=== PATIENT | male | born 1980 | race Caucasian/White ===

== ENCOUNTER 2018-07-14 06:04 | Emergency (ER) | payer BC ==
[2018-07-14 06:18] VITALS: BP 124/82; PULSE 80; TEMP 97.8; BMI 26.6
--- NOTE | 2018-07-14 06:20 | PDOC ---
History of Present Illness - General Chief Complaint: Pain Stated Complaint: PAIN Time Seen by Provider: 07/14/18 06:14 History Source: Patient Exam Limitations: No Limitations - History of Present Illness Initial Comments: 07/14/18 06:18 This is a 38-year-old male who comes in complaining of left arm pain. Patient has had the pain progressive times several months. Patient also is complaining of initially neck pain. Patient said the pain radiates down his arm. Patient saw his primary care doctor and was referred to a urologist but can't the appointment August 03 comes in because he said he is Sleep because of the pain. In addition to the pain since there is numbness of his hand and fingers. However patient said over the last day or so he has had is also become progressively more swollen. Patient takes gabapentin for the pain but otherwise says he is healthy. PAST MEDICAL HISTORY: no significant history PAST SURGICAL HISTORY: no significant history FAMILY HISTORY: no pertinant history SOCIAL HISTORY: Pt lives with family and is employed. MEDICATIONS: reviewed ALLERGIES: As per nursing notes ROS General: No fevers or chills, no weakness, no weight loss HEENT: No change in vision. No sore throat,. No ear pain CardioVascular: No chest pain or shortness of breath Respiratory:No cough, or wheezing. Gastrointestinal: no nausea, vomiting, diarrhea or constipation, No rectal bleeding Genitourinary: No dysuria, hematuria, or frequency Musculoskeletal: . No joint pain or swelling Neurologic: No headache, vertigo, dizziness or loss of consciousness Psychiatric: nor depression Skin: No rashes or easy bruising Endocrine: no increased thirst or abnormal weight change Allergic: no skin or latex allergy All other systems reviewed and normal GENERAL: The patient is awake, alert, and fully oriented, in no acute distress. HEAD: Normal with no signs of trauma. EARS: Bilateral ears are normal with normal external canal. and tympanic membranes. EYES: Pupils equal, round and reactive to light, extraocular movements intact, sclera anicteric, conjunctiva clear. EXTREMITIES: Left upper extremity: There is swelling of the arm and hand. Hand is moderately swollen. There is decreased range of motion of the fingers secondary to swelling. There is also pain on palpation of the upper arm medially. FOR NEUROLOGICAL: Normal speech, normal gait. grossly intact PSYCH: Normal mood, normal affect. SKIN: Warm, Dry, normal turgor, no rashes or lesions noted. Care of this patient was transferred to Dr. Del Angel at 7 AM. Case discussed in detail with oncoming Emergency Physician including history, physical exam and ancillary studies. Oncoming Emergency Physician has assumed care for the patient and will complete the evaluation and treatment. Patient is aware of the plan. Pt is clinically unchanged and stable. Past History - Past Medical History Allergies/Adverse Reactions: Allergies Allergy/AdvReac Type Severity Reaction Status Date / Time No Known Allergies Allergy Verified 10/04/14 12:47 Home Medications: Ambulatory Orders Naproxen [EC-Naprosyn 375 MG] 375 mg PO BID PRN #14 tablet.ec 10/04/14 Gabapentin 300 mg PO DAILY 07/14/18 Naproxen 500 mg PO BID #14 tablet 07/14/18 Diabetes: No - Suicide/Smoking/Psychosocial Hx Smoking Status: Yes Smoking History: Never smoked Number of Cigarettes Smoked Daily: 5 Hx Alcohol Use: No Substance Use Type: Alcohol *DC/Admit/Observation/Transfer Diagnosis at time of Disposition: Pain and swelling of left upper extremity - Discharge Dispostion Disposition: HOME Condition at time of disposition: Stable - Prescriptions Prescriptions: Naproxen 500 mg PO BID #14 tablet - Referrals Referrals: Enrique Barboza MD [Primary Care Provider] - Jh Portillo MD [Staff Physician] - - Patient Instructions Printed Discharge Instructions: DI for Cervical Radiculopathy Additional Instructions: Call the number provided to make an appointment with orthopedics within 48 hours. You will need a MRI of your neck. Take one naproxen twice a day for pain. If you experience worsening pain, swelling, numbness, weakness, or any other concerning symptoms, return to the ER immediately. - Post Discharge Activity Forms/Work/School Notes: Back to Work
[2018-07-14] MEDS ORDERED: KETOROLAC TROMETHAMINE 60 MG/2 ML VIAL IM ONE (06:30)
[2018-07-14] MEDS ORDERED: KETOROLAC TROMETHAMINE 60 MG/2 ML VIAL ONE (06:30)
--- NOTE | 2018-07-14 09:40 | PDOC ---
*Physical Exam - Vital Signs Last Vital Signs Temp Pulse Resp BP Pulse Ox 97.8 F 80 16 124/82 98 07/14/18 06:12 07/14/18 06:12 07/14/18 06:12 07/14/18 06:12 07/14/18 06:12 ED Treatment Course - RADIOLOGY Radiology Studies Ordered: Category Date Time Status DUPLEX VASCUL US-1 ARM [US] Stat Ultrasound 07/14/18 07:20 Taken - Medications Given in the ED: ED Medications Discontinued Medications Generic Name Dose Route Start Last Admin Trade Name Zoe PRN Reason Stop Dose Admin Ketorolac Tromethamine 60 mg 07/14/18 06:30 07/14/18 06:34 Toradol Injection - IM 07/14/18 06:31 60 mg ONCE ONE Administration Medical Decision Making - Medical Decision Making 07/14/18 09:34 Sign out taken from Dr. Leung at 7am. Pt is 38 yo M presenting with several months of intermittent LUE pain, radiating from his neck down to his wrist. Also complaining of intermittent swelling to the L hand, usually in the morning upon awakening and improving throughout the day. Pt received toradol prior to sign out and states that it helped with the pain temporarily. The swelling has since subsided. Doppler of LUE obtained, awaiting radiology read. On my exam, pt with minimal swelling to L hand. Compartments appear soft, and pt has full ROM of shoulder, elbow, and wrist. 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 Otherwise, pt's flexor and extensor tendons are all intact. No neuro deficits. Peripheral pulses wnl. Spoke with Dr. Portillo, who will be able to see pt this coming Tuesday. Pt instructed to call their office today to arrange appointment. *DC/Admit/Observation/Transfer Diagnosis at time of Disposition: Pain and swelling of left upper extremity - Discharge Dispostion Disposition: HOME Condition at time of disposition: Stable - Referrals Referrals: Enrique Barboza MD [Primary Care Provider] - Jh Portillo MD [Staff Physician] - - Patient Instructions Printed Discharge Instructions: DI for Cervical Radiculopathy Additional Instructions: Call the number provided to make an appointment with orthopedics within 48 hours. You will need a MRI of your neck. Take one naproxen twice a day for pain. If you experience worsening pain, swelling, numbness, weakness, or any other concerning symptoms, return to the ER immediately. - Post Discharge Activity Forms/Work/School Notes: Back to Work - Attestations Physician Attestion: 07/14/18 09:57 I, Dr. Jh Del Angel MD, attest that this document has been prepared under my direction and personally reviewed by me in its entirety. I further attest, that it accurately reflects all work, treatment, procedures and medical decision -making performed by me.
== END 2018-07-14 10:22 | disposition home or self-care (01) ==
LOC: SUPCPDRO 06:04 → FER 06:04
PROC: 3E0233Z Introduction of Anti-inflammatory into Muscle, Percutaneous Approach (ICD-10-PCS; principal; 2018-07-14)
DX: M79.602 Pain in left arm (principal)
CPT/HCPCS: 93971; 99282-25

== ENCOUNTER 2018-10-19 05:25 | Day surgery (SDC) | payer BC ==
[2018-10-18 12:42] VITALS: BMI 26.6
[2018-10-19] MEDS ORDERED: MIDAZOLAM HCL 2 MG/2 ML SINGLE DOSE VIAL ONE (08:50)
--- NOTE | 2018-10-19 09:15 | HP ---
[facility] - Chief Complaint Chief Complaint: left hand pain, numbness, weakness History of Present Illness: left CTS History Source: Patient Limitations to Obtaining History: No Limitations - Past Medical History Allergies/Adverse Reactions: Allergies Allergy/AdvReac Type Severity Reaction Status Date / Time No Known Allergies Allergy Verified 10/18/18 12:42 - Current Medications Current Medications: Home Medications Medication Instructions Recorded Metaxalone [Metaxall] 800 mg PO BID 10/18/18 Satellite Physical Exam - Physical Examination Vital Signs: Vital Signs Period Temp Pulse Resp BP Sys/Padron Pulse Ox Last 24 Hr 97.9 F-97.9 F 68-68 20-20 114-114/59-59 97 General Appearance: Well Nourished ENT: Clear Lung: Clear to auscultation Heart: Regular rate & rhythm Breasts: Soft Abdomen: Soft Extremities: No edema Satellite Impression/Plan - Impression/Plan Impression: left CTS Operative Procedure: left CTR Date to be Performed: 10/19/18
[2018-10-19] MEDS ORDERED: KETAMINE HCL 200 MG/20 ML VIAL ONE (10:07)
[2018-10-19] MEDS ORDERED: ceFAZolin 2 GRAM PREMIX BAG IVPB ONE (10:10)
[2018-10-19] MEDS ORDERED: LIDOCAINE HCL 1%, 10 MG/ML (50 mL VIAL) IJ ONE ×2 (10:16)
[2018-10-19] MEDS ORDERED: BUPIVACAINE HCL/PF (5 MG/ML) 30 ML VIAL IJ ONE ×2 (10:16)
--- NOTE | 2018-10-19 10:45 | OP ---
Operative Note - Note: Operative Date: 10/19/18 Pre-Operative Diagnosis: left CTS Operation: left CTR, tenosynovectomy Post-Operative Diagnosis: Same as Pre-op Surgeon: Nitish Bartlett Anesthesiologist/STNA: Obey Ribeiro Anesthesia: Local, MAC Specimens Removed: tenosynovium Estimated Blood Loss (mls): 0 Drains, Volume Out (mls): 0 Blood Volume Replaced (mls): 0 Fluid Volume Replaced (mls): 500 Operative Report Dictated: Yes
--- NOTE | 2018-10-19 11:38 | SPEC ---
DATE OF OPERATION: 10/19/2018 PREOPERATIVE DIAGNOSIS: Left carpal tunnel syndrome. POSTOPERATIVE DIAGNOSIS: Left carpal tunnel syndrome. PROCEDURE: Left carpal tunnel release and tenosynovectomy. SURGEON: Imtiaz Garcia MD SCHEDULE PLANNING MANAGER: None. PARKING ANALYST: Wilmar Ribeiro CRNA ANESTHESIA: MAC anesthesia, local injection of 15 mL of 0.5% Marcaine and 1% lidocaine mix. DRAINS: None. COMPLICATIONS: None. SPECIMEN: Tenosynovium, left wrist. BLOOD LOSS: None. BLOOD GIVEN: None. FLUID REPLACEMENT: Plasma-Lyte, 500 mL. This patient is a 38-year-old male with a preoperative diagnosis of severe recurrent left carpal tunnel syndrome. He also has a cervical radiculopathy and understands that he may not get any relief from the surgery if all the compression of the nerve is in the cervical spine. He understands that the nerve will continue to improve for 6 months from the time of the carpal tunnel release, but he may have continuation of any or all of his symptoms. After understanding the potential risks, complications, alternatives and benefits of surgery versus nonsurgical treatment, the patient elected to undergo this procedure. DESCRIPTION OF PROCEDURE: The patient was brought to the operating room, peripheral IV placed and intravenous sedation was given. One gram of intravenous Ancef was given. MAC anesthesia was induced. A tourniquet was applied to the left upper arm and the left upper extremity was prepped and draped in sterile fashion. The entire case was done under 3.8 loupe magnification. A marking pen was utilized to angelita out a longitudinal incision in an already existing skin crease. Twenty mL of 0.5% Marcaine mixed with 1% lidocaine was injected in and around the surgical incision. The left upper extremity was elevated, exsanguinated with an Esmarch bandage and the tourniquet inflated to 250 mmHg. A No. 15 scalpel blade was utilized to cut down through the skin. Subcutaneous hemostasis was achieved with the bipolar cautery. Dissection was done through the superficial palmar fascia. Self-retaining retractors were placed into the wound. Under direct visualization, the transverse carpal ligament was transected with a No. 15 scalpel blade, exposing the median nerve and the contents of the carpal tunnel. The distal and proximal extents of the release were completed with a Littler scissor and checked with irrigation and my small finger. They were seen to be complete. Limited dissection was done on the radial side of the median nerve and more extensive dissection was done on the ulnar side of the median nerve. The patients nerve was seen to be quite compressed by epineurium and therefore a limited epineurotomy was performed. A Ragnell retractor was used to gently retract the median nerve in a radial direction. The patient had a tremendous amount of inflammatory tenosynovium, much more than usual, and therefore a tenosynovectomy was performed off all 9 flexor tendons. This was passed off the field as tenosynovium, left wrist. The floor of the carpal tunnel was checked. There were no abnormal masses or ganglion cysts. The area was copiously irrigated and washed out and closure begun. Undyed 4-0 Vicryl was used to close the deep dermal layer. Final skin reapproximation was done with horizontal mattress 4-0 nylon sutures. The area was then washed and dried, covered with Xeroform, 4 x 4's, fluffs between the fingers, Webril and a 4-inch plaster roll was utilized to make a volar splint, which was then wrapped with Sole and Coban. The tourniquet was taken down after a total tourniquet time of 20 minutes. There were no complications during the case. The patient tolerated the procedure well and was brought to the ambulatory recovery room in stable condition. IMTIAZ GARCIA M.D. [id number]
[2018-10-19 12:22] VITALS: BP 106/52; PULSE 60; TEMP 97.8
[2018-10-19] MEDS ORDERED: ONDANSETRON 4 MG/2 ML VIAL IVPUSH PRN (13:02)
[2018-10-19] MEDS ORDERED: oxyCODONE HCL 5 MG TABLET PO PRN (13:02)
[2018-10-19] MEDS ORDERED: LACTATED RINGERS SOLUTION 1,000 ML IV SCH (13:15)
--- NOTE | 2018-10-22 08:52 | PATH ---
Surgical Pathology Report Patient Name: REFUGIO URIBE [facility]. Rec. #: [id number] /Age/Gender: 1980 (Age: 38) / M Account: [id number] Location: [facility] SURGICAL Taken: 10/19/2018 Received: 10/19/2018 Reported: 10/22/2018 Physicians: Nitish Bartlett M.D. Specimen(s) Received TENOSYNOVIUM Clinical History Carpal tunnel syndrome Final Diagnosis TENOSYNOVIUM, EXCISION: TENOSYNOVIAL TISSUE WITH FOCAL FIBROSIS. Electronically Signed Rachel Johnson M.D. Gross Description Received in formalin labeled "tenosynovium," is a 2.4 x 1.5 x 0.3 cm aggregate of mckeon-yellow soft tissue fragments, consistent with tenosynovium. The specimen is submitted in toto in one cassette. 10/19/201810/19/2018
== END 2018-10-19 12:20 | disposition home or self-care (01) ==
LOC: JASU-SURG 05:25
PROVIDERS: ATTEND Orthopaedic Surgery
PROC: 0LB60ZZ Excision of Left Lower Arm and Wrist Tendon, Open Approach (ICD-10-PCS; 2018-10-19)
PROC: 01N50ZZ Release Median Nerve, Open Approach (ICD-10-PCS; principal; 2018-10-19 09:00)
DX: G56.02 Carpal tunnel syndrome, left upper limb (principal); M65.842 Other synovitis and tenosynovitis, left hand
CPT/HCPCS: 88304-TC; 94760

== ENCOUNTER 2019-11-21 17:17 | Emergency (ER) | payer BC ==
[2019-11-21 17:25] VITALS: BMI 28.1
[2019-11-21 17:31] VITALS: BP 119/79; PULSE 73; TEMP 98.4
[2019-11-21] MEDS ORDERED: DIPHTH,PERTUSS(ACELL),TET 0.5 ML DISP.SYRIN IM ONE ×2 (17:31→17:32)
[2019-11-21] MEDS ORDERED: CEPHALEXIN MONOHYDRATE 500 MG CAPSULE (UD) PO ONE (18:11)
[2019-11-21] MEDS ORDERED: CEPHALEXIN MONOHYDRATE 500 MG CAPSULE (UD) ONE (18:13)
--- NOTE | 2019-11-21 18:16 | PDOC ---
Documentation entered by Teri Ibarra SCRIBE, acting as scribe for Julio Le MD. Julio Le MD: This documentation has been prepared by the melitaibFred toure Lincy, SCRIBE, under my direction and personally reviewed by me in its entirety. I confirm that the documentation accurately reflects all work, treatment, procedures, and medical decision making performed by me. History of Present Illness - General Chief Complaint: Laceration Stated Complaint: LEFT ARM PUNCTURE History Source: Patient Exam Limitations: No Limitations - History of Present Illness Initial Comments: 11/21/19 18:06 The patient is a 39-year-old male with no reported past medical history who presents to the emergency department with left forearm wound. The patient reports he was at work, hitting a steel chisel when a small fragment broke off and hit the patients left forearm. The patient says the wound bleed a lot, it was cleaned, and he applied a bandage over the wound. The patient reports he wanted to be evaluated to make sure there was no metal foreign body in the wound. Review of system: CONSTITUTIONAL: Absent: fever, no chills, no fatigue EYES: Absent: visual changes ENT: Absent: ear pain, no sore throat CARDIOVASCULAR: Absent: chest pain, no palpitations RESPIRATORY: Absent: cough, no SOB GI: Absent: abdominal pain, no nausea, no vomiting, no constipation, no diarrhea GENITOURINARY: Absent: dysuria, no frequency, no hematuria MUSKULOSKELETAL: +left forearm wound. Absent: back pain, no arthralgia, no myalgia SKIN: Absent: rash NEURO: Absent: headache Physical exam: GENERAL: Well developed, well nourished. Awake and alert. No acute distress. EXTREMITIES: +2mm superficial puncture wound to the left mid-forearm of the volar aspect. No foreign body palpable, no swelling or hematoma, no bleeding, distal pulse full, no distal sensory motor deficit. Past History - Past Medical History Allergies/Adverse Reactions: Allergies Allergy/AdvReac Type Severity Reaction Status Date / Time No Known Allergies Allergy Verified 11/21/19 17:18 Home Medications: Ambulatory Orders Cephalexin Monohydrate [Keflex] 250 mg PO TID #15 capsule 11/21/19 Anemia: No Asthma: No Cancer: No Cardiac Disorders: No CVA: No COPD: No CHF: No Dementia: No Diabetes: No GI Disorders: No Disorders: No HTN: No Hypercholesterolemia: No Liver Disease: No Seizures: No Thyroid Disease: No - Psycho Social/Smoking Cessation Hx Smoking Status: Yes Smoking History: Never smoked Number of Cigarettes Smoked Daily: 5 'Breaking Loose' booklet given: 07/14/18 Hx Alcohol Use: No Drug/Substance Use Hx: No Substance Use Type: Marijuana Hx Substance Use Treatment: No *Physical Exam - Vital Signs Last Vital Signs Temp Pulse Resp BP Pulse Ox 98.4 F 73 17 119/79 100 11/21/19 17:18 11/21/19 17:18 11/21/19 17:18 11/21/19 17:18 11/21/19 17:18 ED Treatment Course - RADIOLOGY Radiology Studies Ordered: Category Date Time Status FOREARM- LEFT [RAD] Stat Radiology 11/21/19 17:27 Ordered - Medications Given in the ED: ED Medications Discontinued Medications Generic Name Dose Route Start Last Admin Trade Name Freq PRN Reason Stop Dose Admin Diphtheria/Tetanus/Acell Pertussis 0.5 ml 11/21/19 17:31 11/21/19 17:40 Boostrix - IM 11/21/19 17:32 0.5 ml ONCE ONE Administration Medical Decision Making - Medical Decision Making 11/21/19 18:16 X-ray was reviewed. There appears to be a small shard of metal in the soft tissues of the mid forearm. Neurovascular exam is intact. The patient has no pain, numbness, tingling, or weakness in the distal forearm, wrist, hand, or fingers. Pulses are full. No sensory or motor deficits. No pain with stretching of the flexor tendons. It was recommended that no removal be attempted. Probing the area would risk damage to the vital structures of the forearm, such as nerves, tendons, and blood vessels. And actually locating a small foreign body of the size would be unlikely. He was instructed to take antibiotics to prevent infection, and that most of the time the foreign body would be expelled spontaneously through the skin at a future time. Referred to hand specialist, Dr. Her, if he develops any persistent symptoms such as pain, numbness, tingling, or limited motion of the distal extremity. Fully ambulatory and in no pain or other distress at discharge to follow-up as directed. The wound was thoroughly scrubbed with saline, and dressed with bacitracin. Wound care instructions were given. Discharge - Discharge Information Problems reviewed: Yes Clinical Impression/Diagnosis: Foreign body (FB) in soft tissue Puncture wound of forearm Qualifiers: Encounter type: initial encounter Laterality: left Qualified Code(s): S51.832A - Puncture wound without foreign body of left forearm, initial encounter Condition: Stable Disposition: HOME - Admission No - Additional Discharge Information Prescriptions: Cephalexin Monohydrate [Keflex] 250 mg PO TID #15 capsule - Follow up/Referral Referrals: Nithin Garza MD [Staff Physician] - 1 week - Patient Discharge Instructions Patient Printed Discharge Instructions: DI for Puncture Wound Additional Instructions: There is a small sliver of metal embedded in your forearm. It is visible on x- ray. It is deep, and it could damage the surrounding tissues, nerves, or blood vessels, to try to probe the area and remove it. In addition, sometimes it is impossible to actually find it. The wound should heal without problem and most of the time your body will force the foreign body to the surface with time. This could take weeks or months. If you develop any symptoms of chest pain, numbness or tingling of the hand or fingers, you should see hand specialist immediately. If there are no symptoms, you can resume all normal activities. Take antibiotics as prescribed to prevent infection. If there is pain or other symptoms, see artillery specialist to discuss further treatment. Rest and elevate for the rest of the day,, dress the wound with antibiotic ointment daily until healed. - Post Discharge Activity Work/Back to School Note: Back to Work
== END 2019-11-21 18:16 | disposition home or self-care (01) ==
LOC: FER 17:17
PROC: 3E0234Z Introduction of Serum, Toxoid and Vaccine into Muscle, Percutaneous Approach (ICD-10-PCS; principal; 2019-11-21)
DX: S51.832A Puncture wound without foreign body of left forearm, initial encounter (principal); S51.842A Puncture wound with foreign body of left forearm, initial encounter; W26.8XXA Contact with other sharp object(s), not elsewhere classified, initial encounter; Y93.89 Activity, other specified; Y92.89 Other specified places as the place of occurrence of the external cause; Y99.0 Civilian activity done for income or pay
CPT/HCPCS: 73090-TC-LT-FY; 90715; 99282-25